=== PATIENT | male | born 1975 | race Caucasian/White ===

== ENCOUNTER 2016-09-01 11:47 | Emergency (ER) | payer OTHER ==
[~2016-09-01] VITALS: Ht 180.3 cm; Wt 93.0 kg
--- NOTE | 2016-09-01 12:16 | ED GI/GU/ABDOMINAL COMPLAINT ---
History of Present Illness General Chief Complaint: Abdominal Pain/Flank Pain Stated Complaint: ABD PAIN X 2WEEKS Source: patient Exam Limitations: no limitations Vital Signs & Intake/Output Vital Signs & Intake/Output Vital Signs Date Time Temp Pulse Resp B/P Pulse O2 O2 Flow FiO2 Ox Delivery Rate 09/01 1345 97.9 87 18 150/90 98 Room Air 09/01 1152 97.8 88 20 147/92 98 Room Air Allergies Coded Allergies: Penicillins (UNKNOWN 09/01/16) Reconcile Medications Ranitidine HCl (Zantac) 150 MG TABLET 1 TAB PO DAILY GI (Reported) Triage Note: PT TO ED C/O ABD PAIN X 2 WEEKS. C/O EXCESSIVE GAS AND BELCHING. HAS BEEN TAKING ZANTAC WITH NO RELIEF. ALSO C/O DIARRHEA, NO VOMITING. PAIN IS WORSE AFTER EATING. DENIES S/S. Triage Nurses Notes Reviewed? yes HPI: Patient states that over the past 2 weeks he's been having an epigastric burning sensation that radiates into his chest. Patient does have a history of reflux and he takes Zantac for it. Patient states this is a Zantac is not helping the symptoms. Patient is concerned that it might be his gallbladder. Patient states that he is burping more than normal. There is no nausea or vomiting. Patient has been having loose bowel movements over the past 4 days. Patient states that eating makes the pain worse. The pain worsens Quickly after eating. At its worst the pain is 7 out of 10. Past History Travel History Traveled to [place] past 21 day No Medical History Any Pertinent Medical History? see below for history Gastrointestinal: GERD Surgical History Surgical History: non-contributory Psychosocial History What is your primary language Yoruba Tobacco Use: Never used ETOH Use: occasional use Illicit Drug Use: denies illicit drug use Family History Hx Contributory? No Review of Systems Review of Systems Constitutional: Reports: no symptoms. EENTM: Reports: no symptoms. Respiratory: Reports: no symptoms. Cardiovascular: Reports: no symptoms. GI: Reports: see HPI, abdominal pain, diarrhea. Genitourinary: Reports: no symptoms. Musculoskeletal: Reports: no symptoms. Skin: Reports: no symptoms. Neurological/Psychological: Reports: no symptoms. Hematologic/Endocrine: Reports: no symptoms. Immunologic/Allergic: Reports: no symptoms. All Other Systems: Reviewed and Negative Physical Exam Physical Exam General Appearance: well developed/nourished, alert, awake, mild distress Head: atraumatic Eyes: Bilateral: PERRL, EOMI. Ears, Nose, Throat, Mouth: hearing grossly normal, moist mucous membrane Neck: normal inspection, supple, full range of motion Respiratory: normal breath sounds, chest non-tender, no respiratory distress, lungs clear Cardiovascular: regular rate/rhythm, normal peripheral pulses Gastrointestinal: normal bowel sounds, soft, non-tender, no organomegaly, NO PRICE'S SIGN Back: normal inspection Extremities: normal range of motion Neurologic/Psych: no motor/sensory deficits, awake, alert, oriented x 3, normal gait, normal mood/affect Skin: intact, normal color, warm/dry Core Measures ACS in differential dx? Yes ASA ordered for poss ACS? No-ACS ruled out Severe Sepsis Present: No Septic Shock Present: No Progress Differential Diagnosis: biliary colic, cholecystitis, gastritis, hepatitis, PUD/ GERD, perforated viscous Plan of Care: Orders Procedure Date/time Status LIPASE 09/01 1216 Complete COMPREHENSIVE METABOLIC PANEL 09/01 1216 Complete CBC WITHOUT DIFFERENTIAL 09/01 1216 Complete AMYLASE 09/01 1216 Complete EKG 09/01 1156 Active Laboratory Tests 09/01/16 1249: Anion Gap 15, Estimated GFR > 60, BUN/Creatinine Ratio 16.7, Glucose 94, Calcium 9.8, Total Bilirubin 1.5 H, AST 43, ALT 100 H, Alkaline Phosphatase 75, Total Protein 7.8, Albumin 4.7, Globulin 3.1, Albumin/Globulin Ratio 1.5, Amylase 42, Lipase 270, CBC w Diff NO MAN DIFF REQ, RBC 5.17, MCV 87.3, MCH 30.0, RDW 12.4, MPV 7.9, Gran % 62.4, Lymphocytes % 25.0, Monocytes % 9.9 H, Eosinophils % 2.5, Basophils % 0.2, Absolute Granulocytes 4.4, Absolute Lymphocytes 1.8, Absolute Monocytes 0.7 H, Absolute Eosinophils 0.2, Absolute Basophils 0, PUBS MCHC 34.3 Diagnostic Imaging: Viewed by Me: Ultrasound. Discussed w/RAD: Ultrasound. Radiology Impression: PATIENT: ISMAEL YO PRESENT AGE: 40 PATIENT ACCOUNT NO: [id number] : 77 LOCATION: [facility] ORDERING PHYSICIAN: ADRIENNE SKINNER MD SERVICE DATE: 09/01/16 EXAM TYPE: US - US-LIMITED ABDOMEN EXAMINATION: US ABDOMEN LIMITED CLINICAL INFORMATION: Right upper quadrant pain.. COMPARISON: None TECHNIQUE: Real-time imaging of the right upper quadrant abdominal viscera. FINDINGS: PANCREAS: The pancreas is obscured by gas. LIVER: Liver is diffusely echogenic but normal in shape and contour. No focal lesion or intrahepatic ductal dilatation seen. GALLBLADDER: Normal. The gallbladder is physiologically distended without evidence of stones, sludge, polyps, wall thickening or pericholecystic fluid. COMMON BILE DUCT: Normal in caliber measuring 0.37 cm in diameter. RIGHT KIDNEY: Normal. No hydronephrosis. No renal calculi or focal parenchymal lesions. The kidney measures 13.2 cm in maximum dimension. FREE FLUID: None. IMPRESSION: Diffusely echogenic liver without any focal lesion or hepatomegaly. The pancreas is not visualized. Rest of the limited abdomen ultrasound is unremarkable. DICTATED BY: NANI BELTRÁN MD DATE/TIME DICTATED:09/01/161324 PAINT MIXER HAND:JENN DATE/TIME TRANSCRIBED:09/01/161324 CONFIDENTIAL, DO NOT COPY WITHOUT APPROPRIATE AUTHORIZATION. <Electronically signed in Other Vendor System> SIGNED BY: JEREL SANON,NANI 09/01/16 1333 Initial ED EKG: NSR, no ST T wave changes Comments: PAIN DECREASED POST GI [place] Departure Departure Disposition: HOME OR SELF CARE Condition: Stable Clinical Impression Primary Impression: Gastritis Referrals: CRESENCIO GALLARDO MD (PCP/Family) Additional Instructions: NO SPICY FOODS OR ALCOHOL RETURN IF SYMPTOMS WORSEN OR FOR ANY CONCNERS Departure Forms: Customer Survey General Discharge Information Prescriptions: Current Visit Scripts Pantoprazole Sodium (Protonix) 1 TAB PO BID #28 TAB
[2016-09-01] MEDS ORDERED: ZANTAC150 M1 PO (12:57)
[2016-09-01 13:03] LABS: ABSOLUTE BASOPHIL COUNT 0 /CUMM (0.0-0.2); ABSOLUTE EOSINOPHIL COUNT 0.2 /CUMM (0.0-0.7); ABSOLUTE GRANULOCYTE CT 4.4 /CUMM (1.4-6.5); ABSOLUTE LYMPH COUNT 1.8 /CUMM (1.2-3.4); ABSOLUTE MONOCYTE COUNT 0.7 /CUMM (0.10-0.60); BASOPHIL % 0.2 % (0.0-2.0); EOSINOPHIL % 2.5 % (0-5); GRANULOCYTE % 62.4 % (42.2-75.2); HEMATOCRIT 45.2 % (42-52); MEAN CORPUSCULAR HGB CONC 34.3 G/DL (33.0-37.0); MEAN CORPUSCULAR VOLUME 87.3 FL (80.0-94.0); MEAN PLATELET VOLUME 7.9 FL (7.4-10.4); PLATELET COUNT 249 /CUMM (130-400); RBC DISTRIBUTION WIDTH 12.4 % (11.5-14.5); RED BLOOD CELL CT 5.17 /CUMM (4.70-6.10); WHITE BLOOD CELL COUNT 7.1 /CUMM (4.8-10.8)
--- NOTE | 2016-09-01 13:33 | ULTRASOUND REPORT ---
EXAMINATION: US ABDOMEN LIMITED CLINICAL INFORMATION: Right upper quadrant pain.. COMPARISON: None TECHNIQUE: Real-time imaging of the right upper quadrant abdominal viscera. FINDINGS: PANCREAS: The pancreas is obscured by gas. LIVER: Liver is diffusely echogenic but normal in shape and contour. No focal lesion or intrahepatic ductal dilatation seen. GALLBLADDER: Normal. The gallbladder is physiologically distended without evidence of stones, sludge, polyps, wall thickening or pericholecystic fluid. COMMON BILE DUCT: Normal in caliber measuring 0.37 cm in diameter. RIGHT KIDNEY: Normal. No hydronephrosis. No renal calculi or focal parenchymal lesions. The kidney measures 13.2 cm in maximum dimension. FREE FLUID: None. IMPRESSION: Diffusely echogenic liver without any focal lesion or hepatomegaly. The pancreas is not visualized. Rest of the limited abdomen ultrasound is unremarkable.
[2016-09-01 13:45] VITALS: BP 150/90
[2016-09-01] MEDS ORDERED: PROTONIX40 M3 PO (13:47)
== END 2016-09-01 13:57 ==
LOC: ERH 11:47
PROVIDERS: Emergency Medicine
DX: K29.70 Gastritis, unspecified, without bleeding (principal)
CPT/HCPCS: 93005; 93010